=== PATIENT | male | born 1970 | race Caucasian/White ===

== ENCOUNTER 2017-12-10 08:08 | Day surgery (SDC) | payer OTHER ==
[~2017-12-10] VITALS: Ht 172.7 cm; Wt 75.0 kg
[~2017-12-10 08:08] MED LIST: HYDR-4383 PO; NO HOME MEDS
[2017-12-10 08:15] VITALS: BP 147/90
[2017-12-10] MEDS ORDERED: LIDOcaine Viscous 15ml cup ONE (08:23)
[2017-12-10] MEDS ORDERED: MIDAZolam 5mg/5ml vial ONE (08:23)
[2017-12-10] MEDS ORDERED: fentaNYL/PF 50MCG/1 ML 2ML syringe ONE ×3 (08:23→09:40)
[2017-12-10 09:00] LABS: BASOPHILS % (AUTO) 0.3 % (0-1); EOSINOPHILS # (AUTO) 0.1 X10'3 (0-0.9); EOSINOPHILS % (AUTO) 0.9 % (0-6); HEMATOCRIT 50.5 % (42.0-52.0); HEMOGLOBIN 17.4 g/dl (14.0-17.9); LYMPHOCYTES % (AUTO) 11.2 % (21-51); MEAN CORPUSCULAR HEMOGLOBIN 32.8 PG (27.0-31.0); MEAN CORPUSCULAR HGB CONC 34.4 % (33.0-36.5); MEAN CORPUSCULAR VOLUME 95.3 FL (78-98); MEAN PLATELET VOLUME 8.3 FL (7.4-10.4); MONOCYTES # (AUTO) 0.5 X10'3 (0-0.9); MONOCYTES % (AUTO) 5.4 % (2-12); NEUTROPHILS # (AUTO) 7.2 X10'3 (1.8-7.7); NEUTROPHILS % (AUTO) 82.2 % (42-75); PLATELET COUNT 155 X10'3 (140-440); RED CELL DISTRIBUTION WIDTH 13.4 % (11.5-14.5); WHITE BLOOD COUNT 8.7 X10'3 (4.5-11.0)
[2017-12-10 09:08] LABS: ALANINE AMINOTRANSFERASE 36 U/L (12-78); ALBUMIN 3.8 G/DL (3.4-5.0); ALBUMIN/GLOBULIN RATIO 1.1 (1.1-1.5); ALKALINE PHOSPHATASE 73 IU/L (46-116); ANION GAP 11 (8-16); ASPARTATE AMINO TRANSFERASE 30 U/L (10-37); BILIRUBIN,TOTAL 0.6 MG/DL (0.1-1.0); BLOOD UREA NITROGEN 7 MG/DL (7-18); BUN/CREATININE RATIO 9.1 (5.4-32.0); CALCIUM 8.9 MG/DL (8.5-10.1); CHLORIDE 104 MMOL/L (99-107); CREATININE 0.77 MG/DL (0.60-1.10); GLUCOSE 92 MG/DL (70-104); POTASSIUM 3.7 MMOL/L (3.5-5.1); SODIUM 142 MMOL/L (135-145); TOTAL CARBON DIOXIDE 27.5 MMOL/L (24-32); TOTAL PROTEIN 7.2 G/DL (6.4-8.2); eGFR > 90 ML/MIN
[2017-12-10] MEDS ORDERED: diphenhydrAMINE 50 mg/ml inj ONE (09:37)
[2017-12-10 10:17] VITALS: BP 132/88
[2017-12-10 10:27] VITALS: BP 134/90
[2017-12-10 10:37] VITALS: BP 139/89
[2017-12-10 10:47] VITALS: BP 136/87
== END 2017-12-10 11:00 | disposition home or self-care (01) ==
LOC: GI LAB 08:08
PROVIDERS: ATTEND Internal Medicine Gastroenterology
DX: R10.30 Lower abdominal pain, unspecified (principal); K29.70 Gastritis, unspecified, without bleeding; K44.9 Diaphragmatic hernia without obstruction or gangrene; K21.0 Gastro-esophageal reflux disease with esophagitis
CPT/HCPCS: 36415; 43239; 45378; 80053; 85025; 99152; 99153; J1200; J2250; J3010; J7030; A4620

== ENCOUNTER 2018-01-27 09:47 | Outpatient (CLI) | payer OTHER ==
[~2018-01-27 09:47] MED LIST changes: -HYDR-4383 PO
== END 2018-01-27 23:59 | disposition home or self-care (01) ==
LOC: 64 CT 09:47
PROVIDERS: ATTEND Family Medicine
DX: N20.0 Calculus of kidney (principal); E27.8 Other specified disorders of adrenal gland; D35.02 Benign neoplasm of left adrenal gland; K75.3 Granulomatous hepatitis, not elsewhere classified; F17.200 Nicotine dependence, unspecified, uncomplicated
CPT/HCPCS: 74176